=== PATIENT | female | born 1965 | race Caucasian/White ===

== ENCOUNTER → 2017-01-19 | Day surgery (SDC) | payer BC ==
[~2017-01-19] MED LIST: METOPROLOL TART25 MG PO; OMEPRAZOLE20 M2 PO
--- NOTE | ~2017-01-19 | CR63 ---
[facility] A Service of [facility] / [facility] RADIOLOGY TEXT RESULTS PATIENT: COLTON WANG LOCATION: [facility] : 65 UNIT #: [id number] AGE: [address]: Liborio Reza MD SEX: F ORDER DR: [id number] [place], [place] [address] [id number] O MR#: [id number] Acc #: [id number] NAME: COLTON WANG : 1965 SEX: F STUDY DATE/TIME: 01/19/2017 9:58 UNIT: [facility] ROOM: STUDY DESCRIPTION: CR Chest 2 View Attending Physician: Liborio Reza M.D. Ordering Physician: Liborio Reza M.D. Primary Care Physician: Generic Doctor Not In System MEDICAL IMAGING REPORT This report is preliminary unless electronic signature is present EXAM PA and lateral chest DATE 01/19/2017 HISTORY Preop evaluation of right knee surgery, shortness of breath with activity today. Hypertension. COMPARISON None. FINDINGS Lungs are hyperinflated but clear. Benign calcified granulomas seen in the left upper lobe. Heart size is normal. No pleural effusion or pneumothorax or acute osseous abnormality. IMPRESSION Benign calcified granulomatous change in the left upper lobe. No acute chest findings. Dictated by... Betty Andres M.D. THIS IS AN ELECTRONICALLY VERIFIED REPORT Betty Andres M.D. at 01/20/2017 8:32 AM LLJuarez/shaniqua TD: 01/19/2017 14:38 JOB #: [id number] MEDICAL IMAGING REPORT [facility] A Service of [facility] / [facility] RADIOLOGY TEXT RESULTS PATIENT: COLTON WANG LOCATION: [facility] : 65 UNIT #: [id number] AGE: [address]: Liborio Reza MD SEX: F ORDER DR: Page 1 of 1 COPY
[2017-01-19 09:54] LABS: HEMATOCRIT 41.5 % (35.0-45.0); HEMOGLOBIN 13.3 gm/dL (12.0-16.0); MEAN CELL VOLUME 93.4 FL (83-96); MEAN CORPUSCULAR HGB CONC 32.1 g/dL (30-36); MEAN PLATELET VOLUME 11.2 FL (6.5-11.5); RED BLOOD COUNT 4.45 X10e (3.90-5.30); RED CELL DISTRIBUTION WIDTH 14.2 % (11.0-15.5); WHITE BLOOD COUNT 9.4 X10e3 (4.0-10.5)
[2017-01-19 09:58] LABS: URINE APPEARANCE CLEAR; URINE BILIRUBIN NEG (NEG); URINE BLOOD NEG (NEG); URINE COLOR YELLOW; URINE GLUCOSE NEG (NEG); URINE KETONE NEG (NEG); URINE LEUKOCYTE ESTERASE NEG (NEG); URINE NITRATE NEG (NEG); URINE PROTEIN NEG (NEG); URINE SPECIFIC GRAVITY 1.009 (1.003-1.035); URINE UROBILINOGEN 0.2 MG/DL (NEG)
[2017-01-19 10:02] LABS: URINE SOURCE CLEAN CATCH
== END | disposition home or self-care (01) ==
LOC: CAMB 08:31
PROVIDERS: Orthopaedic Surgery
DX: Z01.818 Encounter for other preprocedural examination (principal); M17.11 Unilateral primary osteoarthritis, right knee; M24.111 Other articular cartilage disorders, right shoulder
CPT/HCPCS: 36415; 71020; 81003; 85027

== ENCOUNTER → 2017-01-26 | Day surgery (SDC) | payer BC ==
--- NOTE | ~2017-01-26 | EKG ---
PATIENT: COLTON WANG UNIT #: [id number] Ventricular Rate: 66 BPM Atrial Rate: 66 BPM P-R Interval: 136 ms QRS Duration: 74 ms Q-T Interval: 438 ms QTC Calculation(Bezet): 459 ms P [place]: 46 degrees Calculated R [place]: 38 degrees Calculated T [place]: 59 degrees Diagnosis Line: Normal sinus rhythm Diagnosis Line: Normal ECG Diagnosis Line: No previous ECGs available Diagnosis Line: Confirmed by BONNIE MCQUEEN MD ([id number]) on 01/26/2017 Diagnosis Line: 8:37:17 PM INTERPRETING MD: CHARISSE KENNEDY
--- NOTE | ~2017-01-26 | CO ---
Unit #: [id number] #: [id number] Patient: COLTON WANG [id number] [place], [place] [address] [id number] O MR#: [id number] NAME: COLTON WANG ROOM: Age: 51 Sex: F Admission Date: 01/26/2017 : 1965 Attending Physician: Liborio Reza M.D. Primary Care Physician: Generic Doctor Not In System Consultation Date: 01/26/2017 CONSULTATION REPORT PREOPERATIVE COUNSELING The patient was seen in preoperative counseling. The right leg was verbally confirmed with the patient as well as marked. The patient was queried on her home exercise program. She said she had been may be doing 300 leg lifts, although she knew she needed to do 500. At this juncture, it was stressed the importance of her complicity and responsibility for her own recovery and stressed to do all the exercises as directed, stay off of it, keep it dry, range of motion, etc., and this was stressed. PREOPERATIVE DIAGNOSES 1. Right knee medial meniscus tear. 2. Tricompartmental arthritis. 3. Medial synovial shelf. 4. Synovitis, medially and laterally. POSTOPERATIVE DIAGNOSES 1. Right medial and lateral meniscal tears. 2. Tricompartmental arthritis-lateral femoral condyle, grade 3, medial femoral condyle, grade 2 with some kissing lesions on the tibial surface, not severe. 3. Synovitis medially. 4. Synovitis laterally. 5. Medial synovial shelf. 6. Chondromalacia, trochlear groove-patellar interface. 7. A very large osteophyte/spur in proximal medial femoral condyle. PROCEDURES PERFORMED Right knee: 1. Medial and lateral meniscectomy. 2. Excision of medial synovial shelf. 3. Synovectomy, medial compartment. 4. Synovectomy, lateral compartment. 5. Debridement arthroplasty, extensive lateral femoral condyle. 6. Debridement arthroplasty, medial femoral condyle, extensive, grade 2. 7. Abrasion arthroplasty-chondroplasty, excision of osteophyte, which probably is 12 x 8 x 15 proximally femoral condyle. 8. Injection for postop hemostasis, analgesia, and inflammation. ESTIMATED BLOOD LOSS 5 mL. TECHNIQUE Under satisfactory general anesthesia, the patient's right knee was meticulously prepped and draped in sterile technique followed by double Unit #: [id number] #: [id number] Patient: COLTON WANG by the operating team. A standard three-portal entrance was utilized and the knee was systematically inspected throughout. No loose bodies were seen throughout the entire procedure. First, attention was given to the anterior horn of medial meniscus and there was an anterior margin tear, which was excised with the power shaver. The remaining meniscus was both probed and well visualized. No additional tears or instabilities were noted. There was upon initially entering the joint a significant area in the mid weightbearing surface of femoral condyle, grade 2, and a debridement arthroplasty using the power shaver was then done for that. Likewise, attention was given to the medial synovium at the joint line, which correlated with one of the patient's maximum areas of preoperative clinical tenderness and then a synovectomy of this area was done with a bipolar unit for concomitant hemostasis, not for visualization, but to treat pathological entity. Anterior cruciate was probed normal. Normal vascular pattern. Normal tautness. Normal stability. There was some inflamed synovium in the lateral anterior compartment and a synovectomy of this likewise was done for its pathological condition and not for visualization. Attention was turned laterally. There was also an inner margin tear, starting at the middle third, coming anterior with some fraying and a mechanical excision of this anterior and middle meniscal tear was done with power shaver on vacuum. Upon initially entering into the lateral compartment, there was a starburst defect of mid weightbearing surface of the femoral condyle and upon probing, it was probably a 10 mm hinging area of articular surface imminently to break off to become a loose body. At this juncture, there was an area of grade 3 degenerative arthritis and had a debridement arthroplasty of this area with chondroplasty with the power shaver on vacuum. Attention was then turned to synovium at the midline of joint line which was likewise hypertrophic, inflamed, and pathologic. Again, Mitek unit for concomitant hemostasis with bipolar unit was then done for synovectomy of lateral compartment of the knee for the pathological entity and not for visualization. Scope was then passed superolaterally viewing the trochlear and patellar groove. The trochlear groove in the proximal two-thirds look good. The patellar surface however was frayed and soft. Mechanical debridement arthroplasty of the patellar surface was then likewise done. Attention then was noted to a very large osteophyte/spur on the superomedial femoral condyle impinging, rubbing the medial soft tissue capsular structures as well as medial synovial shelf. The medial synovial shelf was then excised with Mitek unit. This was excised for its pathological thickening and attention was then turned to this very large spur, which was probably 12 x 15 x 8 or 10 mm and the power shaver unit was utilized for excising this down and make significant improvement upon the mechanics of the medial capsule as far as flexion and sliding on range of motion. Joint was then copiously irrigated and then injected 40 mL of 0.25% Marcaine with epi, 1 mL of dexamethasone. The patient tolerated this well. Dictated by... Unit #: [id number] #: [id number] Patient: COLTON WANG Sumit Lincoln/dyllan TD: 01/27/2017 06:41 JOB #: [id number] CONSULTATION REPORT Page 1 of 1 X Liborio Reza MD X CONSULTATION REPORT
== END | disposition home or self-care (01) ==
LOC: CSUR 06:41
DX: S83.241A Other tear of medial meniscus, current injury, right knee, initial encounter (principal); S83.281A Other tear of lateral meniscus, current injury, right knee, initial encounter; M17.11 Unilateral primary osteoarthritis, right knee; M65.861 Other synovitis and tenosynovitis, right lower leg; M67.861 Other specified disorders of synovium, right knee; M94.261 Chondromalacia, right knee; M25.761 Osteophyte, right knee; K21.9 Gastro-esophageal reflux disease without esophagitis; I10 Essential (primary) hypertension; Z90.49 Acquired absence of other specified parts of digestive tract; Z98.890 Other specified postprocedural states; Z79.899 Other long term (current) drug therapy
CPT/HCPCS: 84703; 93005; J0690; J1100; J1170; J2250; J2405; J3010